=== PATIENT | female | born 1985 | race American Indian/Alaskan Native ===

== ENCOUNTER 2016-11-29 12:51 | Emergency (ER) | payer MEDICAID ==
--- NOTE | 2016-11-29 13:49 | Emergency Department Report ---
Chief Complaint: Anxiety Stated Complaint: PANIC ATTACKS/CP/BACK PAIN Time Seen by Provider: 11/29/16 13:45 - HPI History of Present Illness: Patient complains of anxiety attack and she says she's been having anxiety attack 2-3 times a day. She says she has shortness of breath and chest pain earlier today but none now. She is also complaining of back pain. Denies any urinary frequency urgency or burning. She says she is also losing weight. Patient says she does not have a psychiatrist but she has a counselor and she is not having any medication for anxiety. Denies any history of heart disease. Denies any pain at present. Chest pain usually is in the middle of her chest and feels tight - ROS Review of Systems: All systems are negative unless stated in HPI above - Exam Vital Signs: Vital Signs 11/29/16 13:13 Temperature 98.4 F Pulse Rate 77 Respiratory 16 Rate Blood Pressure 130/73 O2 Sat by Pulse 100 Oximetry Physical Exam: Gen.: This is a 31-year-old female well-nourished well-developed in no acute distress. Cardiovascular: S1, S2. Regular rate rhythm. Negative murmur Psych: No suicide or homicide ideation. Normal mood and behavior. MSE screening note: Focused history and physical exam performed. Due to findings the following was ordered:SEE mdm ED Medical Decision Making - Medical Decision Making MDM: Patient screened by provider in triage area. Appropriate protocol initiated and patient to be seen in main ED by PROVIDER . ED Disposition for MSE Condition: Stable
[2016-11-29 14:31] LABS: Anion Gap 13 mmol/L; BUN/Creatinine Ratio 17; Basophils % (Auto) 1.5 % (0.0-1.8); Blood Urea Nitrogen 10 mg/dL (7-17); Calcium 9.4 mg/dL (8.4-10.2); Carbon Dioxide 27 mmol/L (22-30); Chloride 101.5 mmol/L (98-107); Eosinophils % (Auto) 1.5 % (0.0-4.3); Glucose 79 mg/dL (65-100); Hematocrit 38.6 % (30.3-42.9); Hemoglobin 12.3 gm/dl (10.1-14.3); Mean Corpuscular HGB Conc 32 % (30-34); Mean Corpuscular Hemoglobin 28 pg (28-32); Mean Corpuscular Volume 88 fl (79-97); Platelet Count 268 K/mm3 (140-440); Potassium 3.8 mmol/L (3.6-5.0); Red Blood Count 4.36 M/mm3 (3.65-5.03); Red Cell Distribution Width 12.5 % (13.2-15.2); Sodium 138 mmol/L (137-145); White Blood Count 4.6 K/mm3 (4.5-11.0)
[2016-11-29 21:21] LABS: Bacteria,Urine 1+ /HPF (Negative); Bilirubin,Urine NEG (Negative); Blood,Urine NEG (Negative); Ketones,Urine NEG (Negative); Leukocyte Esterase,Urine NEG (Negative); Mucus,Urine 2+ /HPF; Nitrite,Urine NEG (Negative); Protein,Urine <15 mg/dL mg/dL (Negative); WBC,Urine < 1.0 /HPF (0.0-6.0)
[2016-11-29] MEDS ORDERED: ROCEPHIN IM ONE (21:47)
[2016-11-29] MEDS ORDERED: XYLOCAINE 1% MPF 5 mL INFILTRATI ONE (21:47)
--- NOTE | 2016-11-29 22:03 | XRay Report ---
FINAL REPORT PROCEDURE: XR CHEST ROUTINE 2V TECHNIQUE: PA and lateral chest radiographs were obtained. CPT 57746 HISTORY: chest pain, anxiety COMPARISON: No prior studies are available for comparison. FINDINGS: Heart: Normal. Mediastinum/Vessels: Normal. Lungs/Pleural space: Normal. Bony thorax: No acute osseous abnormality. Other: IMPRESSION: Normal examination.
--- NOTE | 2016-11-29 22:08 | Emergency Department Report ---
ED Anxiety HPI - General Chief Complaint: Anxiety Stated Complaint: PANIC ATTACKS/CP/BACK PAIN Time Seen by Provider: 11/29/16 13:45 Source: patient Mode of arrival: Ambulatory - History of Present Illness Initial Comments: 31-year-old female past medical history anxiety attacks, panic attacks presents with complaint of losing weight for approximately 6 months. Also states that she has been getting intermittent panic attacks for several months but is concerned that she may have a physical problem. Denies current chest pain palpitations shortness of breath nausea vomiting abdominal pain. Denies any fevers or chills. Patient is awake alert and oriented 3 nontoxic appearing. Denies any suicidal or homicidal ideation denies any active auditory or visual hallucinations. States she uses marijuana but denies drinking alcohol and denies any other drug use. Patient states she does have an outpatient psychiatric counselor and her next appointment is in approximately 2 weeks on . Patient states that earlier today she had an episode where she felt panicked and had palpitations. States she has had issues with her personal intimate relationships recently. Patient also states she has some back pain which has been lingering for some time. States she has lost approximately 10 pounds and about 6 months. MD Complaint: anxiety Onset/Timin -: month(s) Symptoms: chest pain, palpitations Place: home Previous History of Same: Yes Severity: moderate Quality: intermittant Provoking factors: emotional stress, work/job stress Improves With: nothing Associated symptoms: chest pain - Related Data Home Medications: Previous Rx's Medication Instructions Recorded Last Taken Type Diclofenac Sodium 50 mg PO Q8H PRN #25 tablet. 11/29/16 Unknown Rx Hydroxyzine HCl 25 mg PO Q8H PRN #15 tablet 11/29/16 Unknown Rx Allergies/Adverse Reactions: Allergies Allergy/AdvReac Type Severity Reaction Status Date / Time No Known Allergies Allergy Verified 11/29/16 13:17 ED Review of Systems ROS: Stated complaint: PANIC ATTACKS/CP/BACK PAIN Other details as noted in HPI Constitutional: denies: chills, fever Eyes: denies: eye pain, eye discharge, vision change ENT: denies: ear pain, throat pain Respiratory: denies: cough, shortness of breath, wheezing Cardiovascular: denies: chest pain, palpitations Endocrine: no symptoms reported Gastrointestinal: denies: abdominal pain, nausea, diarrhea Genitourinary: denies: urgency, dysuria, discharge Musculoskeletal: denies: back pain, joint swelling, arthralgia Skin: denies: rash, lesions Neurological: denies: headache, weakness, paresthesias Psychiatric: anxiety. denies: depression Hematological/Lymphatic: denies: easy bleeding, easy bruising ED Past Medical Hx - Past Medical History Previous Medical History?: Yes Additional medical history: anxiety - Surgical History Past Surgical History?: No - Social History Smoking Status: Never Smoker Substance Use Type: None, Marijuana - Medications Home Medications: Home Medications Medication Instructions Recorded Confirmed Last Taken Type Diclofenac Sodium 50 mg PO Q8H PRN #25 tablet. 11/29/16 Unknown Rx Hydroxyzine HCl 25 mg PO Q8H PRN #15 tablet 11/29/16 Unknown Rx ED Physical Exam - General Limitations: No Limitations General appearance: alert, in no apparent distress - Head Head exam: Present: atraumatic, normocephalic - Eye Eye exam: Present: normal appearance, PERRL, EOMI - ENT ENT exam: Present: mucous membranes moist - Neck Neck exam: Present: normal inspection - Respiratory Respiratory exam: Present: normal lung sounds bilaterally. Absent: respiratory distress - Cardiovascular Cardiovascular Exam: Present: regular rate, normal rhythm. Absent: systolic murmur, diastolic murmur, rubs, gallop - GI/Abdominal GI/Abdominal exam: Present: soft, normal bowel sounds - Extremities Exam Extremities exam: Present: normal inspection - Back Exam Back exam: Present: normal inspection - Neurological Exam Neurological exam: Present: alert, oriented X3, CN II-XII intact, normal gait - Psychiatric Psychiatric exam: Present: normal affect, agitated (patient states that she is agitated because she has been waiting a long time to be seen in waiting room. Patient states she was more anxious earlier today when she currently is right now), anxious - Skin Skin exam: Present: warm, dry, intact, normal color. Absent: rash ED Course Vital Signs 11/29/16 11/29/16 11/29/16 13:13 21:35 22:12 Temperature 98.4 F 98.3 F Pulse Rate 77 66 67 Respiratory 16 16 18 Rate Blood Pressure 130/73 Blood Pressure 102/63 110/72 [Right] O2 Sat by Pulse 100 100 100 Oximetry ED Medical Decision Making - Lab Data Result diagrams: 11/29/16 14:01 11/29/16 14:01 - Medical Decision Making A/P: Anxiety attack, panic attack, musculoskeletal back pain 1-labs unremarkable, EKG unremarkable, chest x-ray unremarkable, urinalysis unremarkable, patient is not 2-mental health counselor Ashleigh spoke with patient's and provided her with outpatient resources for psychiatric follow-up 3-patient is not clinically psychotic has no hallucinations auditory and/or visual, is fully lucid is cooperative is conversant and calm. Denies any suicidal or homicidal ideation when I specifically asked her if she has any intention to harm herself or anyone else including SI or HI. Patient adamantly denies this 4- I advised patient to follow up as an outpatient with her counselor provided her with a short course of hydroxyzine which only advised her to use if she is feeling particularly anxious and I specifically advised her to seek help if she becomes suicidal or homicidal. She was calm during this conversation and agreed to do so. 5- diclofenac when necessary for musculoskeletal back Critical care attestation.: If time is entered above; I have spent that time in minutes in the direct care of this critically ill patient, excluding procedure time. ED Disposition Clinical Impression: Anxiety Disposition: DC-01 TO HOME OR SELFCARE Is pt being admited?: No Does the pt Need Aspirin: No Condition: Stable Instructions: Generalized Anxiety Disorder (ED), Musculoskeletal Pain (ED), Anxiety (ED) Prescriptions: Diclofenac Sodium 50 mg PO Q8H PRN #25 tablet.dr BEJARANO Reason: Pain Hydroxyzine HCl 25 mg PO Q8H PRN #15 tablet PRN Reason: Anxiety Referrals: [facility] [Outside] - 3-5 Days [facility] [Outside] - 3-5 Days [facility] [Outside] - 3-5 Days Forms: Work/School Release Form(ED) Time of Disposition: 22:08
[2016-11-29 22:14] VITALS: BP 110/72
== END 2016-11-29 22:12 | disposition home or self-care (01) ==
LOC: ED 12:51
DX: F41.0 Panic disorder [episodic paroxysmal anxiety] (principal); F12.10 Cannabis abuse, uncomplicated
CPT/HCPCS: 36415; 71020; 80048; 81001; 84443; 84484; 84703; 85025; 93005; 93010; 99284; J0696

== ENCOUNTER 2016-12-21 18:50 | Emergency (ER) | payer MEDICAID ==
[2016-12-21 19:25] VITALS: BP 111/69
--- NOTE | 2016-12-21 22:08 | Emergency Department Report ---
ED Recheck HPI - General Chief Complaint: Anxiety Stated Complaint: PANIC ATTACK Time Seen by Provider: 12/21/16 21:19 Source: patient Mode of arrival: Ambulatory Limitations: No Limitations - History of Present Illness Initial Comments: This is a 31-year-old female nontoxic, well nourished in appearance, no acute signs of distress presents to the ED complaining of medication refill of Hydroxyzine. Patient stated she had a panic attach 2 weeks ago and came into emergency room and received a prescription for Hydroxyzine 25 mg and stated she had another anxiety earlier today and has ran out and is requesting for a refill. Patient stated she does have a follow-up appointment with a psychiatrist on 01/06/2017. Patient currently denies any anxiety, chest pain, shortness of breath, panic attack, fever, chills, nausea, vomiting, numbness or tingling. Patient states she is asymptomatic and is wants medication refill. Patient denies any allergies. Past medical history includes depression and anxiety. MD Complaint: medication refill request Returns Today for: request for prescription Symptoms Since Prior Visit: no new symptoms, improved Context: ran out of medication Associated Symptoms: none. denies: fever, chills, chest pain, shortness of breath, rash, malaise, nasuea, abdominal pain - Related Data Previous Rx's Medication Instructions Recorded Last Taken Type Diclofenac Sodium 50 mg PO Q8H PRN #25 tablet. 11/29/16 Unknown Rx Hydroxyzine HCl 25 mg PO Q8H PRN #15 tablet 11/29/16 Unknown Rx Hydroxyzine HCl 25 mg PO Q8H PRN #30 tablet 12/21/16 Unknown Rx Allergies Allergy/AdvReac Type Severity Reaction Status Date / Time No Known Allergies Allergy Verified 11/29/16 13:17 ED Review of Systems ROS: Stated complaint: PANIC ATTACK Other details as noted in HPI Constitutional: denies: chills, fever Eyes: denies: eye pain, eye discharge, vision change ENT: denies: ear pain, throat pain Respiratory: denies: cough, shortness of breath, wheezing Cardiovascular: denies: chest pain, palpitations Endocrine: no symptoms reported Gastrointestinal: denies: abdominal pain, nausea, diarrhea Genitourinary: denies: urgency, dysuria, discharge Musculoskeletal: denies: back pain, joint swelling, arthralgia Skin: denies: rash, lesions Neurological: denies: headache, weakness, paresthesias Psychiatric: denies: anxiety, depression Hematological/Lymphatic: denies: easy bleeding, easy bruising ED Past Medical Hx - Past Medical History Hx Psychiatric Treatment: Yes (depression,anxiety) Additional medical history: anxiety - Social History Smoking Status: Never Smoker Substance Use Type: None - Medications Home Medications: Home Medications Medication Instructions Recorded Confirmed Last Taken Type Diclofenac Sodium 50 mg PO Q8H PRN #25 tablet.dr 11/29/16 Unknown Rx Hydroxyzine HCl 25 mg PO Q8H PRN #15 tablet 11/29/16 Unknown Rx Hydroxyzine HCl 25 mg PO Q8H PRN #30 tablet 12/21/16 Unknown Rx ED Physical Exam - General Limitations: No Limitations General appearance: alert, in no apparent distress - Head Head exam: Present: atraumatic, normocephalic, normal inspection - Eye Eye exam: Present: normal appearance, PERRL, EOMI. Absent: scleral icterus, conjunctival injection, nystagmus, periorbital swelling, periorbital tenderness Pupils: Present: normal accommodation - ENT ENT exam: Present: normal exam, normal orophraynx, mucous membranes moist, TM's normal bilaterally, normal external ear exam - Neck Neck exam: Present: normal inspection, full ROM. Absent: tenderness, meningismus, lymphadenopathy, thyromegaly - Respiratory Respiratory exam: Present: normal lung sounds bilaterally. Absent: respiratory distress, wheezes, rales, rhonchi, stridor, chest wall tenderness, accessory muscle use, decreased breath sounds, prolonged expiratory - Cardiovascular Cardiovascular Exam: Present: regular rate, normal rhythm, normal heart sounds. Absent: bradycardia, tachycardia, irregular rhythm, systolic murmur, diastolic murmur, rubs, gallop - GI/Abdominal GI/Abdominal exam: Present: soft, normal bowel sounds - Extremities Exam Extremities exam: Present: normal inspection, full ROM, normal capillary refill. Absent: tenderness, pedal edema, joint swelling, calf tenderness - Back Exam Back exam: Present: normal inspection, full ROM. Absent: tenderness, CVA tenderness (R), CVA tenderness (L), muscle spasm, paraspinal tenderness, vertebral tenderness, rash noted - Neurological Exam Neurological exam: Present: alert, oriented X3, CN II-XII intact, normal gait, reflexes normal - Psychiatric Psychiatric exam: Present: normal affect, normal mood - Skin Skin exam: Present: warm, dry, intact, normal color. Absent: rash ED Course Vital Signs 12/21/16 19:23 Temperature 98.2 F Pulse Rate 88 Respiratory 18 Rate Blood Pressure 111/69 O2 Sat by Pulse 99 Oximetry - Reevaluation(s) Reevaluation #1: 12/21/16 22:07 Patient is speaking in full sentences with no signs of distress noted. Critical care attestation.: If time is entered above; I have spent that time in minutes in the direct care of this critically ill patient, excluding procedure time. ED Disposition Clinical Impression: Anxiety, Medication refill Disposition: - TO HOME OR SELFCARE Is pt being admited?: No Does the pt Need Aspirin: No Condition: Stable Instructions: Hydroxyzine Hydrochloride (By mouth), Anxiety (ED) Additional Instructions: Follow-up with a primary care doctor/psychiatrist in 3-5 days or if symptoms worsen and continue return to emergency room as soon as possible possible. Prescriptions: Hydroxyzine HCl 25 mg PO Q8H PRN #30 tablet PRN Reason: Anxiety Referrals: PRIMARY CAREMD [Primary Care Provider] - 3-5 Days COOPER GREY MD [Staff Physician] - 3-5 Days [facility] [Outside] - 3-5 Days [facility] [Outside] - 3-5 Days Forms: Work/School Release Form(ED)
== END 2016-12-21 22:27 | disposition home or self-care (01) ==
LOC: ED 18:50
DX: Z76.0 Encounter for issue of repeat prescription (principal); F41.9 Anxiety disorder, unspecified
CPT/HCPCS: 99282